=== PATIENT | female | born 1940 | race Caucasian/White ===

== ENCOUNTER 2016-08-11 18:26 | Inpatient (IN) ==
[2016-08-11] MEDS ORDERED: SODIUM CHLORIDE 0.9% 500 ML IV STA (18:52)
[2016-08-11 19:15] LABS: Basophils % 0.2 % (0.0-0.8); Eosinophils # 0.1 10*3/uL (0.0-0.87); Eosinophils % 0.6 % (0.00-10.9); Hematocrit 33.6 VOL% (35.7-47.0); Hemoglobin 11.2 GM/DL (12.0-16.0); Immature Granulocytes % 0.3 %; Immature Granulocytes Absolute 0.03 #; Lymphocytes # 2.1 10*3/uL (1.4-4.0); Lymphocytes % 22.5 % (21.3-54.2); Mean Corpuscular HGB Conc 33.3 GM/DL (32-36); Mean Corpuscular Hemoglobin 32 PG (27-34); Mean Corpuscular Volume 94.6 FL (87-102); Mean Platelet Volume 10.3 FL (9.6-12.0); Monocytes # 0.9 10*3/uL (0.11-0.8); Monocytes % 9.8 % (1.7-12.7); Neutrophils # 6.2 10*3/uL (1.4-7.4); Neutrophils % 66.6 % (38.7-73.9); Platelet Count 148 T/CUMM (130-400); Red Blood Count 3.55 MC/CUMM (3.8-5.5); Red Cell Distribution Width 12.5 % (9.3-17.3); White Blood Count 9.4 T/CUMM (4-12)
[2016-08-11 19:25] LABS: PT Patient Result 10.5 SECS; Partial Thromboplastin Time 28.2 SECS (0-40)
[2016-08-11 19:33] LABS: Albumin 3.6 G/DL (3.4-5.0); Bilirubin,Total 0.4 MG/DL (0.2-1.0); Calcium 8.6 MG/DL (8.5-10.1); Osmolality,Calculated 283.7 MOS/KG (273-304)
[2016-08-11] MEDS ORDERED: CLINDAMYCIN INJ 600 MG in PREMIX 1 EACH IV STA (19:49)
[2016-08-11] MEDS ORDERED: CLINDAMYCIN INJ 50 ML IV ONE (19:50)
--- NOTE | 2016-08-11 19:56 | CT Report ---
CT angio abdomen/femoral Indication: Left inguinal pain and swelling status post bypass. Comparison: CTA abdomen and pelvis 06/27/2016. Technique: Following administration of intravenous contrast, multiple contiguous axial images were obtained from the mid to lower chest through the feet. Additionally, 3-D Volumetric reconstructions of the aorta and bilateral lower extremity arterial structures were performed. Coronal and sagittal MPR series were initially submitted. The CT examination was performed using one or more of the following dose reduction techniques: Automatic exposure control, adjustment of the mA and kV according to patient size, use of acute or iterative reconstruction techniques. Findings: Vascular findings: Lower thoracic aorta demonstrates a moderate amount of mural thrombus as well as mild fusiform enlargement at the level of the diaphragmatic hiatus. At the hiatus, the aorta measures 3.5 cm transverse dimension. The celiac axis demonstrates moderate stenosis of the vessel origin. SMA appears patent. Previous repair of aortic aneurysm is demonstrated stent extending to the level of the renal arteries. The appearance of the stent including both aortic component and bilateral iliac components is stable. Note is made that the distal right common iliac moiety has an outpouching of contrast at the termination, image #[id number], which measures approximately a centimeter in transverse dimension. This has changed little in appearance since comparison study. 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 Diffuse intimal calcification is present throughout the internal iliac arteries. The external iliac arteries and bilateral common femoral arteries demonstrate intimal calcification but otherwise unremarkable. The bifurcation of the right common femoral artery is widely patent. The right deep femoral artery as well as right superficial femoral artery demonstrated no evidence of severe stenosis. There is short segment of intimal calcification at the level of Chau's canal resulting in [id number] stenosis of the vessel lumen. The right popliteal artery additionally demonstrates mild stenosis as result of intimal calcification at the level of the tibial plateau. Below the level of the right knee, scattered intimal calcification is noted within the tibioperoneal trunk as well as anterior tibial artery origin. 2 vessel runoff to the right ankle via the anterior tibial and peroneal arteries present. Posterior tibial artery is not well visualized below the mid calf. The bifurcation of the left common femoral artery demonstrates a widely patent deep femoral artery and patent left superficial femoral artery with mild stenosis of the vessel origin suggested. The left superficial femoral artery demonstrates some areas of intimal calcification particularly in the more caudal aspect of the vessel and at Chau's canal resulting in [id number] stenosis. The left popliteal artery demonstrates [id number] stenosis at the level of the tibial plateau. Below the level of the left knee, moderate calcification of the tibioperoneal trunk and anterior tibial artery origin is present. Two-vessel runoff to the left ankle via the peroneal and anterior tibial artery is present. The posterior tibial artery is not well-visualized shortly after its origin. Nonvascular findings: Underlying skin surface of the left inguinal region, there is a fluid collection with somewhat thick organized wall measuring 3.6 cm transverse dimension and 3.1 cm in AP dimension. This has changed little in size since comparison study with exception of organization of wall thickness and suggests chronic hematoma. Abscess is not entirely excluded. There is no flow to suggest patent pseudoaneurysm. A few of the left inguinal lymph nodes are borderline in size and may minimally increased in size since comparison study. Soft tissues and musculature of the lower extremities demonstrate no significant abnormalities. Bony structures of the lower extremities demonstrate no significant abnormalities. Calcified granuloma is present within the right lower lobe. The lower chest demonstrates no acute findings. The appearance of the abdomen and pelvis is stable compared to the previous study. Multiple diverticula are again demonstrated involving sigmoid colon. Uterus is surgically absent. Small renal cyst lateral cortex left mid kidney is stable. Impression: 1. The overall appearance of the aortobiiliac endograft is stable compared to the prior study. The termination of the right common iliac component occurs in a segment of iliac artery with fusiform enlargement and the medial wall of the stent remains displaced by approximately 9 mm from the vessel margin. 2. Probable chronic hematoma within the inguinal soft tissues on the left. There has been interval organization of wall. Infected hematoma/abscess cannot be excluded based on imaging. 3. Other findings as detailed. 08/11/2016 7:40 PM PROCEDURE INTERPRETED AT [facility] DEPARTMENT OF RADIOLOGY Final Report Signed by: Dr. Rafael Howell
[2016-08-11] MEDS ORDERED: KETOROLAC 60 MG/2 ML VIAL IM ONE (20:01)
[2016-08-11] MEDS ORDERED: ORPHENADRINE 60 MG/2 ML VIAL ONE (20:01)
[2016-08-11] MEDS ORDERED: ACETAMINOPHEN 325 MG TABLET PO PRN (20:02)
[2016-08-11] MEDS ORDERED: ONDANSETRON 4 MG/2 ML VIAL IV PRN (20:02)
--- NOTE | 2016-08-11 20:07 | Emergency Department Note ---
ISanam Gwan, am scribing for, and in the presence of, Karlso Ortiz MD 19:00. IDiana Kevin Lee, MD, personally performed the services described in this documentation, ascribed by Sandra Marion in my presence, and it is both accurate and complete . Arrival - Arrival Chief Complaint: Non-Specific Stated Complaint: POST OP COMPLICATIONS ED Nursing Triage Note: Pt c/o left groin pain and swelling started 3 days ago. Pt had stents placed in her legs 1.[address] Nelson and Betzy. Mode of Arrival: Ambulatory Limitations: No Limitations Source: Patient, Family, Old Records Reviewed, RN Notes Reviewed - History of Present Illness HPI Narrative: Patient is a 76 y/o white female who presents to the ED for further evaluation of edema and pain to left groin with an onset 3 days ago. Family confirmed that pt underwent bilateral Femoral to Iliac Artery Occlusion on 06/27/[address] Nelson with NML results. Patient then stated that 3 days ago she began to have tenderness, edema and erythema to the site on the left side. Patient denies that she has had any sxs on the right side. During exam, pt was alert and awake but showed no signs of distress. No other problems/complaints reported in ED. Onset (ago): day(s) Consistency: constant Severity: moderate Allergies/Adverse Reactions: Allergies Allergy/AdvReac Type Severity Reaction Status Date / Time tape Allergy Intermediate pulls skin Uncoded 05/14/16 06:14 off Home Medications: Home Medications Medication Instructions Recorded Confirmed Type Aspirin EC Tab 81 mg PO DAILY 08/04/15 08/11/16 History Cholecalciferol [Vitamin D3] 1,000 unit PO DAILY 08/04/15 08/11/16 History Furosemide Tab [Lasix Tab] 40 mg PO BID 08/04/15 08/11/16 History Multivit-Min/Iron/Folic/Lutein 1 each PO DAILY 08/04/15 08/11/16 History [Centrum Silver Women Tablet] Omeprazole [Prilosec] 20 mg PO DAILY 08/04/15 08/11/16 History Pravastatin [Pravachol] 20 mg PO BEDTIME 08/04/15 08/11/16 History Terazosin [Hytrin] 4 mg PO BEDTIME 08/04/15 08/11/16 History hydrALAZINE TAB [Apresoline Tab] 25 mg PO BID 08/04/15 08/11/16 History Montelukast Tab [Singulair Tab] 10 mg PO DAILY 02/08/16 08/11/16 History Metoprolol Succinate Xl [Toprol Xl] 50 mg PO BID tablet 02/26/16 08/11/16 Rx acetaZOLAMIDE TAB [Diamox Tab] 250 mg PO DAILY #90 tablet 02/26/16 08/11/16 Rx Verapamil Tab [Calan Tab] 120 mg PO DAILY 05/13/16 08/11/16 History Clopidogrel [Plavix] 75 mg PO DAILY #90 tablet 05/16/16 08/11/16 Rx HYDROcodone/ACETAMIN 7.5-325 1 tablet PO BID PRN 08/11/16 08/11/16 History [[place] 7.5-325] Review of System - Review of System 12 point system: reviewed and no additional remarkable complaints except as stated - Review of System Constitutional: Absent: chills, fever Eyes: Absent: discharge, pain Respiratory: Absent: cough Cardiovascular: Absent: chest pain, palpitations Gastrointestinal: Absent: abdominal pain, nausea, vomiting, diarrhea Genitourinary female: Absent: dysuria Musculoskeletal: Present: leg pain (left groin area around graft site is red and swollen ). Absent: arm pain, back pain Skin: Absent: rash, lesions Medical,Surgical,& Family Hx - Medical History Cardio: History of: Aneurysm (AAA-Watching For Now Dr. Pérez), CAD, Hypertension, PVD, Cardiovascular Problems (Jewel Sawyer Dr. Ware;Lt Carotid Stenosis) Neurology: No history of: Brain Aneurysm, Cerebral Hemorrhage, Cerebrovascular Accident , Cerebral Palsy, Dementia, Migraine, Multiple Sclerosis, Parkinson's Disease, Peripheral Neuropathy, Seizures, TIA, Vertigo, Neurologocal Cancer HEENT: History of: Eye Problem (Glasses/Cataracts), Dental Problems (Upper Full Lower Partial Plate) Endocrine: History of: Dyslipidemia Respiratory: History of: Asthma, Respiratory Problems (SOB; Flu Vac Current 2014 -2015 Season) Comment Only: Pneumonia (Unsure about Pneum Vac) Renal: History of: Renal Problems (Chronic Real Insufficiency Dr. Lester Last visit 07/2015) Gastrointestinal: History of: GERD, Polyps (Several) Musculoskeletal: History of: Back/Neck Problems (Dr. 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 Ware x1 stent) , Carotid Endarterectomy (Rt) Neurologic Surgeries: Patient denies: Brain Aneurysm, Cerebral Hemorrhage, Neurologic Surgery HEENT Surgeries: Surgical HX of: Carotid Endarterectomy (Rt), Eye Surgery ( Cataract Rt; 09/11/[address] Iraheta), Tonsilectomy & Adenoidectomy Abdominal Surgeries: Surgical HX of: Abdominal Surgery, Appendectomy, Colonoscopy (Dr. Garcia Last Oct 2014) Reproductive Surgeries: Surgical HX of;: Breast Surgery (Lumpectomy Lt), Gynecologic Surgery, Hysterectomy (x1 ovary removed) - Family History Family History: Reports;: Family Cancer (Mother Pancreatic; Father Lung, Brother Tongue,Colon,Lung; Son Lung Ca), Family Diabetes (x2 sisters), Family Heart Disease (Sister), Family Hypertension (Strong Family hx) Denies;: Family Anesthesia Reaction, Family Psychiatric Problems, Family Stroke - Social History Smoking Status: Former smoker Exam Vital Signs: Vital Signs Temperature 97.5 F L 08/11/16 19:12 Pulse Rate 89 08/11/16 19:12 Respiratory Rate 20 08/11/16 19:12 Blood Pressure 223/88 08/11/16 19:12 O2 Sat by Pulse Oximetry 95 08/11/16 18:28 - General General appearance: alert, in no apparent distress - Head Head exam: Present: atraumatic, normocephalic - Eye Eye exam: Present: normal appearance, PERRL, EOMI - ENT ENT exam: Present: normal oropharynx, mucous membranes moist, TM's normal bilaterally, normal external ear exam - Neck Neck exam: Present: full ROM, trachea midline. Absent: tenderness - Chest Chest inspection: Present: symmetric chest wall rise. Absent: tenderness - Respiratory Respiratory exam: Present: normal lung sounds bilaterally. Absent: respiratory distress - Cardiovascular Cardiovascular exam: Present: regular rate, normal rhythm, normal heart sounds. Absent: murmur, rubs - Abdominal Exam Abdominal exam: Present: soft, normal bowel sounds. Absent: distention, tenderness - Extremities Exam Extremities exam: Present: full ROM, other (patient has tenderness, erythema to left groin area around graft site; good distal pulses were detected ) - Back Exam Back exam: Present: full ROM. Absent: tenderness - Neurological Exam Neurological exam: Present: alert, oriented X3, CN II-XII intact. Absent: motor sensory deficit - Psychiatric Psychiatric exam: Present: normal affect, normal mood - Skin Skin exam: Present: warm, dry, intact, normal color Course Course Narrative: will admit for surgical I and D Results - Labs CBC & BMP: 08/11/16 19:08 08/11/16 19:08 Lab Results: I have reviewed the patients labs Labs: Laboratory Tests 08/11/16 08/11/16 19:08 19:15 WBC 9.4 RBC 3.55 L Hgb 11.2 L Hct 33.6 L Plt Count 148 [place] # (Auto) 0.9 H POC Creatinine 0.89 POC Estimated GFR (eGFR) > 60 Laboratory Tests 08/11/16 19:08 INR 1.0 PT Patient/Control Mix 10.5 Circ Anticoag PTT 28.2 Laboratory Tests 08/11/16 19:08 Sodium 138 Potassium 4.0 Chloride 101 Carbon Dioxide 31 BUN 31 H Creatinine 1.80 H Glucose 133 H Albumin/Globulin Ratio 1.0 L - Diagnostic Findings Procedure: CT Abdomen and Pelvis: image reviewed by me (see report) Disposition Clinical Impression: Postoperative abscess Case discussed with: patient Disposition: Still a Patient Condition: Stable
[2016-08-11] MEDS: DEXTROSE 5% NACL 0.45% 1,000 ML IV SCH (22:20)
[2016-08-12] MEDS: CLINDAMYCIN INJ 600 MG in PREMIX 1 EACH IV SCH ×3 (05:21→20:17)
[2016-08-12] MEDS: PANTOPRAZOLE 40 MG TABLET PO SCH (08:13)
--- NOTE | 2016-08-12 11:24 | General Surg History&Physical ---
Assessment and Plan (1) Hematoma following procedure Status: Acute Assessment and plan: incision and drainage this am Current Visit: Yes History of Present Illness Chief complaint: left groin pain History of present illness: Ms. Salgado is a 76 year old female Ms. 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 Repeat CT angiogram indicates no pseudo- aneurysm or arterial bleeding in this area it actually just appears to be some old hematoma I have examined and it is mildly tender slightly mildly erythematous not certain that this would respond to simple aspiration I therefore offered to take her to the operating room for small incision and drainage of the collection and then treated appropriately. I have explained how this was begun and she understands and agrees Home Medications Medication Instructions Recorded Confirmed Type Aspirin EC Tab 81 mg PO DAILY 08/04/15 08/11/16 History Cholecalciferol [Vitamin D3] 1,000 unit PO DAILY 08/04/15 08/11/16 History Furosemide Tab [Lasix Tab] 40 mg PO BID 08/04/15 08/11/16 History Multivit-Min/Iron/Folic/Lutein 1 each PO DAILY 08/04/15 08/11/16 History [Centrum Silver Women Tablet] Omeprazole [Prilosec] 20 mg PO DAILY 08/04/15 08/11/16 History Pravastatin [Pravachol] 20 mg PO BEDTIME 08/04/15 08/11/16 History Terazosin [Hytrin] 4 mg PO BEDTIME 08/04/15 08/11/16 History hydrALAZINE TAB [Apresoline Tab] 25 mg PO BID 08/04/15 08/11/16 History Montelukast Tab [Singulair Tab] 10 mg PO DAILY 02/08/16 08/11/16 History Metoprolol Succinate Xl [Toprol Xl] 50 mg PO BID tablet 02/26/16 08/11/16 Rx acetaZOLAMIDE TAB [Diamox Tab] 250 mg PO DAILY #90 tablet 02/26/16 08/11/16 Rx Verapamil Tab [Calan Tab] 120 mg PO DAILY 05/13/16 08/11/16 History Clopidogrel [Plavix] 75 mg PO DAILY #90 tablet 05/16/16 08/11/16 Rx HYDROcodone/ACETAMIN 7.5-325 1 tablet PO BID PRN 08/11/16 08/11/16 History [[place] 7.5-325] Allergies Allergy/AdvReac Type Severity Reaction Status Date / Time tape Allergy Intermediate pulls skin Uncoded 05/14/16 06:14 off Medical,Surgical,& Family Hx - Medical History Cardio: History of: Aneurysm (AAA-Watching For Now Dr. Pérez), CAD, Hypertension, PVD, Cardiovascular Problems (Speech Therapist Dr. Ware;Lt Carotid Stenosis) Neurology: No history of: Brain Aneurysm, Cerebral Hemorrhage, Cerebrovascular Accident , Cerebral Palsy, Dementia, Migraine, Multiple Sclerosis, Parkinson's Disease, Peripheral Neuropathy, Seizures, TIA, Vertigo, Neurologocal Cancer HEENT: History of: Eye Problem (Glasses/Cataracts), Dental Problems (Upper Full Lower Partial Plate) Endocrine: History of: Dyslipidemia Respiratory: History of: Asthma, Respiratory Problems (SOB; Flu Vac Current 2014 -2015 Season) Comment Only: Pneumonia (Unsure about Pneum Vac) Renal: History of: Renal Problems (Chronic Real Insufficiency Dr. Lester Last visit 07/2015) Gastrointestinal: History of: GERD, Polyps (Several) Musculoskeletal: History of: Back/Neck Problems (Dr. 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 Ware x1 stent) , Carotid Endarterectomy (Rt) Neurologic Surgeries: Patient denies: Brain Aneurysm, Cerebral Hemorrhage, Neurologic Surgery HEENT Surgeries: Surgical HX of: Carotid Endarterectomy (Rt), Eye Surgery ( Cataract Rt; 09/11/[address] Iraheta), Tonsilectomy & Adenoidectomy Abdominal Surgeries: Surgical HX of: Abdominal Surgery, Appendectomy, Colonoscopy (Dr. Garcia Last Oct 2014) Reproductive Surgeries: Surgical HX of;: Breast Surgery (Lumpectomy Lt), Gynecologic Surgery, Hysterectomy (x1 ovary removed) - Family History Family History: Reports;: Family Cancer (Mother Pancreatic; Father Lung, Brother Tongue,Colon,Lung; Son Lung Ca), Family Diabetes (x2 sisters), Family Heart Disease (Sister), Family Hypertension (Strong Family hx) Denies;: Family Anesthesia Reaction, Family Psychiatric Problems, Family Stroke - Social History Smoking Status: Former smoker Frequency of Alcohol Use: None Type of Drug Use: None Exam - Constitutional Vitals: Period Temp Pulse Resp BP Sys/Greer Pulse Ox Last 24 Hr 97.0 F-98.7 F 68-98 18-20 141-201/70-99 General appearance: normal weight, no acute distress - Head Head exam: Present: normal inspection - Eye Eye exam: Present: EOMI Pupils: Present: NIGEL - Neck Neck exam: Present: normal inspection - Respiratory Respiratory exam: Present: clear to auscultation bilaterally - Cardiovascular Cardiovascular exam: Present: RRR - GI/Abdominal GI/Abdominal exam: Present: soft - Expanded Left Lower Hip exam: Present: tenderness, erythema (She has about a 3-4 cm area of fullness with a surrounding area of erythema this is not pulsatile perfusion distally appears to be good) - Neurological Exam Neurological exam: Present: alert, oriented X3 Speech: Present: normal - Skin Skin exam: Present: normal color Quality Measures - VTE Contraindication to Mechanical VTE Prophylaxis: Ischemic Vascular Disease Results - Labs CBC & BMP: 08/11/16 19:08 08/11/16 19:08
[2016-08-12] MEDS ORDERED: TISSUE ADHESIVE 1 EACH APPLICATOR TOP ONE (11:45)
[2016-08-12] MEDS ORDERED: BUPIVACAINE 0.5% 50 ML VIAL ONE (11:45)
[2016-08-12] MEDS ORDERED: PANTOPRAZOLE 40 MG VIAL IV ONE (11:58)
[2016-08-12] MEDS ORDERED: LIDOCAINE 2% 5 ML VIAL ONE (12:15)
[2016-08-12] MEDS ORDERED: KETOROLAC 30 MG/1 ML VIAL ONE (12:15)
[2016-08-12] MEDS ORDERED: PROPOFOL 200 MG/20 ML VIAL IV ONE (12:15)
[2016-08-12] MEDS ORDERED: hydrALAZINE 20 MG/1 ML VIAL ONE (12:15)
[2016-08-12] MEDS ORDERED: ONDANSETRON 4 MG/2 ML VIAL ONE ×2 (12:15→13:06)
--- NOTE | 2016-08-12 12:46 | Operative Note ---
Date of procedure: 08/12/16 Procedure: Dr. Nelson operative report Zaid kennedy. Surgeon: Leslie Anesthesia: Rony LMA Preoperative diagnosis: Probable infected hematoma left groin Postoperative diagnosis: Same Procedure: Incision and drainage infected hematoma left groin. Indications for the procedure. Ms. Boyer is a 76-year-old woman 3 months post endovascular repair of iliac aneurysms and iliac occlusive disease. She has developed what appears to be a mildly infected hematoma in the left groin that is acutely tender with some surrounding erythema I recommended incision and drainage of explained the alternatives risks and complications which she understands and accepts Description of the procedure: After the induction of LMA anesthesia the patient' s lower abdomen groins were prepped with ChloraPrep and draped in usual fashion there is an area of erythema surrounding the left inguinal region and femoral canal with flow of a palpable mass in area and incision is made directly over the mass under the inguinal crease carried bluntly into a modest abscess that contained what appeared to be old infected hematoma this was cultured irrigated and explored with a fingertip break up any loculations it was then packed with iodoform gauze dressing applied blood loss less than 5 cc Surgeon / Physician: Melvin Nelson Results - Labs CBC & BMP: 08/11/16 19:08 08/11/16 19:08 Discharge Plan - Discharge Medications No Action Cholecalciferol [Vitamin D3] 1,000 unit PO DAILY Multivit-Min/Iron/Folic/Lutein [Centrum Silver Women Tablet] 1 each PO DAILY Pravastatin [Pravachol] 20 mg PO BEDTIME Omeprazole [Prilosec] 20 mg PO DAILY Terazosin [Hytrin] 4 mg PO BEDTIME hydrALAZINE TAB [Apresoline Tab] 25 mg PO BID Furosemide Tab [Lasix Tab] 40 mg PO BID Aspirin EC Tab 81 mg PO DAILY Montelukast Tab [Singulair Tab] 10 mg PO DAILY Metoprolol Succinate Xl [Toprol Xl] 50 mg PO BID tablet acetaZOLAMIDE TAB [Diamox Tab] 250 mg PO DAILY #90 tablet Verapamil Tab [Calan Tab] 120 mg PO DAILY Clopidogrel [Plavix] 75 mg PO DAILY #90 tablet HYDROcodone/ACETAMIN 7.5-325 [[place] 7.5-325] 1 tablet PO BID PRN PRN Reason: Pain - Follow Up or Referral - Forms/Instructions
[2016-08-12] MEDS ORDERED: ePHEDrine 50 MG/ML AMP ONE (12:57)
[2016-08-12] MEDS ORDERED: SEVOFLURANE 1 UNIT/15 MINUTE INH ONE (12:58)
[2016-08-12] MEDS ORDERED: fentaNYL 100 MCG/2 ML VIAL ONE (12:58)
[2016-08-12] MEDS ORDERED: HYDROmorphone 2 MG/1 ML VIAL ONE (13:06)
[2016-08-12] MEDS ORDERED: ONDANSETRON 4 MG/2 ML VIAL IV PRN (13:08)
[2016-08-12] MEDS: HYDROmorphone 2 MG/1 ML VIAL IV PRN ×4 (13:10→13:25)
[2016-08-12] MEDS ORDERED: LACTATED RINGERS 1,000 ML IV SCH (13:30)
[2016-08-12] MEDS: DEXTROSE 5% NACL 0.45% 1,000 ML IV SCH ×2 (18:25→20:05)
[2016-08-12] MEDS: TERAZOSIN 2 MG CAPSULE PO SCH (20:17)
[2016-08-12] MEDS: METOPROLOL SUCCINATE XL 50 MG TABLET PO SCH (20:17)
[2016-08-12] MEDS: hydrALAZINE 25 MG TABLET PO SCH (20:18)
[2016-08-12] MEDS: PRAVASTATIN 20 MG TABLET PO SCH (20:18)
[2016-08-12] MEDS: FUROSEMIDE 40 MG TABLET PO SCH (20:26)
--- NOTE | 2016-08-13 00:37 | Anesthesia Post-Op ---
Anesthesia Post OP - Post Ansesthetic Evaluation Patient seen in post op: Yes Resp: within normal limits CV: within normal limits Mental: within normal limits Temp: within normal limits [id number]: within normal limits Nausea and Vomiting: within normal limits Pain: within normal limits
[2016-08-13] MEDS: CLINDAMYCIN INJ 600 MG in PREMIX 1 EACH IV SCH ×3 (05:25→21:06)
[2016-08-13] MEDS: acetaZOLAMIDE 250 MG TABLET PO SCH (08:18)
[2016-08-13] MEDS: VERAPAMIL 120 MG TABLET PO SCH (08:18)
[2016-08-13] MEDS: ASPIRIN EC 81 MG TABLET PO SCH (08:18)
[2016-08-13] MEDS: hydrALAZINE 25 MG TABLET PO SCH ×2 (08:18→21:02)
[2016-08-13] MEDS: FUROSEMIDE 40 MG TABLET PO SCH ×2 (08:18→17:24)
[2016-08-13] MEDS: CLOPIDOGREL 75 MG TABLET PO SCH (08:18)
[2016-08-13] MEDS: PANTOPRAZOLE 40 MG TABLET PO SCH (08:18)
[2016-08-13] MEDS: CHOLECALCIFEROL 1,000 UNIT TABLET PO SCH (08:19)
[2016-08-13] MEDS: MONTELUKAST 10 MG TABLET PO SCH (08:19)
[2016-08-13] MEDS: METOPROLOL SUCCINATE XL 50 MG TABLET PO SCH ×2 (08:19→21:02)
[2016-08-13] MEDS ORDERED: OMEPRAZOLE 20 MG CAPSULE PO SCH (09:00)
--- NOTE | 2016-08-13 09:18 | Event Note ---
Ms. garcia vital signs are good with no fever no tachycardia she still has some erythema surrounding the area although it is a lesser size area of erythema. Modest serosanguineous bloody drainage but not really purulent. Initial blood cultures are negative wound cultures are pending. I am going to continue her here on IV clindamycin today pending initial cultures I then may let her go home tomorrow on p.o. antibiotics and we have some initial culture.
[2016-08-13] MEDS: DEXTROSE 5% NACL 0.45% 1,000 ML IV SCH (18:53)
[2016-08-13] MEDS: PRAVASTATIN 20 MG TABLET PO SCH (21:02)
[2016-08-13] MEDS: TERAZOSIN 2 MG CAPSULE PO SCH (21:02)
[2016-08-14] MEDS: CLINDAMYCIN INJ 600 MG in PREMIX 1 EACH IV SCH (04:26)
[2016-08-14] MEDS: hydrALAZINE 25 MG TABLET PO SCH ×2 (10:10→22:05)
[2016-08-14] MEDS: acetaZOLAMIDE 250 MG TABLET PO SCH (10:10)
[2016-08-14] MEDS: ASPIRIN EC 81 MG TABLET PO SCH (10:10)
[2016-08-14] MEDS: FUROSEMIDE 40 MG TABLET PO SCH ×2 (10:10→16:25)
[2016-08-14] MEDS: MONTELUKAST 10 MG TABLET PO SCH (10:11)
[2016-08-14] MEDS: PANTOPRAZOLE 40 MG TABLET PO SCH (10:11)
[2016-08-14] MEDS: VERAPAMIL 120 MG TABLET PO SCH (10:11)
[2016-08-14] MEDS: CLOPIDOGREL 75 MG TABLET PO SCH (10:11)
[2016-08-14] MEDS: METOPROLOL SUCCINATE XL 50 MG TABLET PO SCH ×2 (10:13→22:05)
[2016-08-14] MEDS: CHOLECALCIFEROL 1,000 UNIT TABLET PO SCH (10:13)
[2016-08-14] MEDS ORDERED: BISACODYL 5 MG TABLET PO PRN (11:04)
--- NOTE | 2016-08-14 11:07 | Event Note ---
Patient is afebrile with normal vital signs were still has a good bit of erythema around the abscess site. Asked that we remove the packing irrigated and repacked today and will continue the clindamycin for the time being and I am awaiting the cultures which are growing cramp gram-negative and gram- positive rods she is asking for laxative or stool softener which I will order but I think she needs to stay until I have better control of this infection
[2016-08-14] MEDS: DOCUSATE/SENNA 50-8.6 MG TABLET PO SCH (13:21)
[2016-08-14] MEDS ORDERED: CLINDAMYCIN 300 MG CAPSULE PO SCH (14:00)
--- NOTE | 2016-08-14 14:11 | Event Note ---
Mrs. garcia his cultures come back for strep agalactiae because this is resistant to clindamycin but sensitive to penicillin and ampicillin I will switch her to p.o. ampicillin and probably will allow her to be discharged home tomorrow
[2016-08-14] MEDS: AMPICILLIN 500 MG CAPSULE PO SCH ×2 (16:24→22:05)
[2016-08-14] MEDS: TERAZOSIN 2 MG CAPSULE PO SCH (22:05)
[2016-08-14] MEDS: PRAVASTATIN 20 MG TABLET PO SCH (22:05)
[2016-08-15] MEDS: FUROSEMIDE 40 MG TABLET PO SCH ×2 (09:00→13:57)
[2016-08-15] MEDS: AMPICILLIN 500 MG CAPSULE PO SCH ×2 (09:00→13:57)
[2016-08-15] MEDS: PANTOPRAZOLE 40 MG TABLET PO SCH (09:01)
[2016-08-15] MEDS: DOCUSATE/SENNA 50-8.6 MG TABLET PO SCH (09:01)
[2016-08-15] MEDS: acetaZOLAMIDE 250 MG TABLET PO SCH (09:01)
[2016-08-15] MEDS: MONTELUKAST 10 MG TABLET PO SCH (09:01)
[2016-08-15] MEDS: ASPIRIN EC 81 MG TABLET PO SCH (09:01)
[2016-08-15] MEDS: VERAPAMIL 120 MG TABLET PO SCH (09:01)
[2016-08-15] MEDS: CHOLECALCIFEROL 1,000 UNIT TABLET PO SCH (09:01)
[2016-08-15] MEDS: CLOPIDOGREL 75 MG TABLET PO SCH (09:01)
[2016-08-15] MEDS: hydrALAZINE 25 MG TABLET PO SCH (09:01)
[2016-08-15] MEDS: METOPROLOL SUCCINATE XL 50 MG TABLET PO SCH (09:01)
[2016-08-15 12:04] VITALS: BP 98/47
--- NOTE | 2016-08-15 13:13 | Discharge Summary ---
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 An I&D was done on this has grown a strep agalactiae that was not sensitive to the clindamycin that she was initially started with she has now been switched to ampicillin 500 mg 4 times daily and his son learning how to irrigate and pack the wound itself. She states today that she feels like she is getting gout in her left foot where she has done in the past she is not sure which medication she is used but it may be colchicine and I will reorder that I think she is safe to go home as the induration and cellulitis is markedly improved. I will make an appointment tentatively to see her in 3 weeks but she will call my office sooner if she does not show resolution as expected Diagnosis - Discharge Diagnosis (1) Hematoma following procedure Status: Acute Discharge Plan - Discharge Data Disposition: Disch To Home/Self Care Condition at Discharge: Stable Discharge Diet: advance to your usual diet Activity: resume usual activities as tolerated Hygiene: may shower Weight Bearing at Discharge: full weight bearing Driving: no restrictions Contact your physician if you experience:: fever over 101, Redness or swelling, Bleeding - Discharge Medications New acetaZOLAMIDE TAB [Diamox Tab] 250 mg PO DAILY tablet Probenecid/Colchicine 500-0.5 [Colbenemid] 1 tablet PO BID #20 tablet Ampicillin Cap 500 mg PO QID #30 capsule Continue Cholecalciferol [Vitamin D3] 1,000 unit PO DAILY Multivit-Min/Iron/Folic/Lutein [Centrum Silver Women Tablet] 1 each PO DAILY Pravastatin [Pravachol] 20 mg PO BEDTIME Omeprazole [Prilosec] 20 mg PO DAILY Terazosin [Hytrin] 4 mg PO BEDTIME hydrALAZINE TAB [Apresoline Tab] 25 mg PO BID Furosemide Tab [Lasix Tab] 40 mg PO BID Aspirin EC Tab 81 mg PO DAILY Montelukast Tab [Singulair Tab] 10 mg PO DAILY Metoprolol Succinate Xl [Toprol Xl] 50 mg PO BID tablet acetaZOLAMIDE TAB [Diamox Tab] 250 mg PO DAILY #90 tablet Verapamil Tab [Calan Tab] 120 mg PO DAILY Clopidogrel [Plavix] 75 mg PO DAILY #90 tablet HYDROcodone/ACETAMIN 7.5-325 [Sumner 7.5-325] 1 tablet PO BID PRN PRN Reason: Pain - Follow Up or Referral Follow Up: Melvin Nelson MD [Physician] - 09/02/16 - Forms/Instructions Exam - Constitutional Vitals: Period Temp Pulse Resp BP Sys/Greer Pulse Ox Last 24 Hr 96.2 F-98.6 F 63-73 14-20 98-142/46-55 92-96 Discharge Results Procedures and tests throughout hospitalization: Pending Orders 08/11/16 19:31 Blood Culture Stat Labs on day of discharge: Preliminary micro results at discharge 08/11/16 19:31 Blood Culture - Preliminary Blood No growth at 3 days 08/11/16 19:31 Blood Culture - Preliminary Blood No growth at 3 days DS: Provider Date of admission: 08/12/16 14:09 Primary care physician: Sung Hayden MD Attending physician on admission: Melvin Nelson MD Discharging clinician: Melvin Nelson MD
== END 2016-08-15 14:55 | disposition home or self-care (01) | DRG 921 ==
LOC: N.EDINP 18:26 → N.ED 18:26 → N.3E 20:38
PROVIDERS: ADMIT Surgery; ATTEND Surgery

== ENCOUNTER 2019-04-18 10:19 | Inpatient (IN) ==
[2019-04-18] MEDS ORDERED: ALBUTEROL 2.5 MG/3 ML NEB RESP TX STA (10:43)
[2019-04-18] MEDS ORDERED: methylPREDNISolone SOD SUC 125 MG/2 ML VIAL IV STA (10:44)
[2019-04-18 11:04] LABS: Basophils % 0.2 % (0.0-0.8); Hematocrit 33.3 VOL% (35.7-47.0); Hemoglobin 10.8 GM/DL (12.0-16.0); Immature Granulocytes % 1.7 %; Immature Granulocytes Absolute 0.21 #; Lymphocytes # 1.5 10*3/uL (1.4-4.0); Lymphocytes % 11.8 % (21.3-54.2); Mean Corpuscular HGB Conc 32.4 GM/DL (32-36); Mean Corpuscular Volume 99.7 FL (87-102); Mean Platelet Volume 9.6 FL (9.6-12.0); Monocytes % 8.1 % (1.7-12.7); Neutrophils % 78.2 % (38.7-73.9); Platelet Count 194 T/CUMM (130-400); Red Blood Count 3.34 MC/CUMM (3.8-5.5); Red Cell Distribution Width 12.8 % (9.3-17.3); White Blood Count 12.6 T/CUMM (4-12)
[2019-04-18 11:25] LABS: Albumin 3.2 G/DL (3.4-5.0); Bilirubin,Total 0.4 MG/DL (0.2-1.0); Calcium 9.3 MG/DL (8.5-10.1); Osmolality,Calculated 275.1 MOS/KG (273-304); Total Protein 7.4 G/DL (6.4-8.3)
[2019-04-18] MEDS ORDERED: hydrALAZINE 20 MG/1 ML VIAL ONE (11:30)
[2019-04-18] MEDS ORDERED: ACETAMINOPHEN 500 MG TABLET ONE (11:30)
[2019-04-18] MEDS ORDERED: LEVOFLOXACIN INJ 500 MG in PREMIX 1 EACH IV STA (11:33)
[2019-04-18] MEDS ORDERED: ACETAMINOPHEN 500 MG TABLET PO STA (11:44)
[2019-04-18] MEDS ORDERED: hydrALAZINE 20 MG/1 ML VIAL IV STA (11:44)
[2019-04-18] MEDS ORDERED: ALBUTEROL 2.5 MG/3 ML NEB RESP TX PRN (12:25)
[2019-04-18] MEDS ORDERED: ONDANSETRON 4 MG/2 ML VIAL IV PRN (12:40)
[2019-04-18] MEDS ORDERED: ACETAMINOPHEN 325 MG TABLET PO PRN (12:40)
[2019-04-18] MEDS ORDERED: FUROSEMIDE 40 MG/4 ML VIAL IV ONE (12:44)
[2019-04-18] MEDS ORDERED: FUROSEMIDE 20 MG/2 ML VIAL ONE (12:56)
[2019-04-18] MEDS: ALBUTEROL/IPRATROPIUM 3 ML NEB RESP TX SCH ×2 (13:02→19:38)
[2019-04-18] MEDS ORDERED: hydrALAZINE 20 MG/1 ML VIAL IV PRN (15:19)
[2019-04-18] MEDS: cefTRIAXone 1,000 MG in SYRINGE 1 EACH IV SCH (16:22)
[2019-04-18] MEDS: AZITHROMYCIN INJ 500 MG in SODIUM CHLORIDE 0.9% 250 ML IV SCH (16:22)
[2019-04-18] MEDS: methylPREDNISolone SOD SUC 40 MG/1 ML VIAL IV SCH (21:27)
[2019-04-18] MEDS: MONTELUKAST 10 MG TABLET PO SCH (21:28)
[2019-04-18] MEDS: SIMVASTATIN 10 MG TABLET PO SCH (21:28)
[2019-04-18] MEDS: ENOXAPARIN 40 MG/0.4 ML SYRINGE SUBCUT SCH (21:28)
[2019-04-18] MEDS: TERAZOSIN 2 MG CAPSULE PO SCH (21:29)
[2019-04-18] MEDS: hydrALAZINE 25 MG TABLET PO SCH (21:29)
[2019-04-18] MEDS: METOPROLOL SUCCINATE XL 100 MG TABLET PO SCH (21:29)
[2019-04-18] MEDS: MULTIVITAMIN (CENTRUM) TABLET PO SCH (21:29)
[2019-04-18] MEDS: METHOCARBAMOL 500 MG TABLET PO SCH (21:29)
[2019-04-18] MEDS: DOCUSATE SODIUM 100 MG CAPSULE PO SCH (21:29)
[2019-04-18] MEDS: BUDESONIDE/FORMOTEROL 80-4.5 INHALER 6.9 GM INH SCH (21:34)
[2019-04-19] MEDS: ALBUTEROL/IPRATROPIUM 3 ML NEB RESP TX SCH ×4 (00:11→19:52)
[2019-04-19] MEDS: methylPREDNISolone SOD SUC 40 MG/1 ML VIAL IV SCH ×3 (04:15→21:47)
[2019-04-19 05:46] LABS: Basophils % 0.2 % (0.0-0.8); Hematocrit 33.1 VOL% (35.7-47.0); Hemoglobin 10.6 GM/DL (12.0-16.0); Immature Granulocytes % 4.3 %; Immature Granulocytes Absolute 0.42 #; Lymphocytes # 1.4 10*3/uL (1.4-4.0); Lymphocytes % 14.4 % (21.3-54.2); Mean Corpuscular Volume 98.8 FL (87-102); Monocytes % 2.1 % (1.7-12.7); Platelet Count 199 T/CUMM (130-400); Red Blood Count 3.35 MC/CUMM (3.8-5.5); Red Cell Distribution Width 12.7 % (9.3-17.3); White Blood Count 9.9 T/CUMM (4-12)
[2019-04-19 06:05] LABS: Calcium 9.3 MG/DL (8.5-10.1); Osmolality,Calculated 278.8 MOS/KG (273-304)
[2019-04-19] MEDS: MULTIVITAMIN (BEROCCA) TABLET PO SCH (08:49)
[2019-04-19] MEDS: ASPIRIN EC 81 MG TABLET PO SCH (08:49)
[2019-04-19] MEDS: CHOLECALCIFEROL 1,000 UNIT TABLET PO SCH (08:49)
[2019-04-19] MEDS: FUROSEMIDE 40 MG TABLET PO SCH (08:49)
[2019-04-19] MEDS: hydrALAZINE 25 MG TABLET PO SCH ×2 (08:49→21:47)
[2019-04-19] MEDS: DOCUSATE SODIUM 100 MG CAPSULE PO SCH ×2 (08:49→21:47)
[2019-04-19] MEDS: CALCIUM (CARBONATE) 600 MG TABLET PO SCH (08:49)
[2019-04-19] MEDS: OMEGA 3 ACID ETHYL ESTERS 1 GM CAPSULE PO SCH (08:49)
[2019-04-19] MEDS: BUDESONIDE/FORMOTEROL 80-4.5 INHALER 6.9 GM INH SCH ×2 (08:54→21:55)
[2019-04-19] MEDS: guaiFENesin 200 MG/10 ML UDCUP PO PRN ×2 (09:55→17:26)
[2019-04-19] MEDS: cefTRIAXone 1,000 MG in SYRINGE 1 EACH IV SCH (12:08)
[2019-04-19] MEDS: AZITHROMYCIN INJ 500 MG in SODIUM CHLORIDE 0.9% 250 ML IV SCH (12:12)
[2019-04-19] MEDS: ENOXAPARIN 40 MG/0.4 ML SYRINGE SUBCUT SCH (21:46)
[2019-04-19] MEDS: METHOCARBAMOL 500 MG TABLET PO SCH (21:47)
[2019-04-19] MEDS: TERAZOSIN 2 MG CAPSULE PO SCH (21:47)
[2019-04-19] MEDS: MULTIVITAMIN (CENTRUM) TABLET PO SCH (21:47)
[2019-04-19] MEDS: METOPROLOL SUCCINATE XL 100 MG TABLET PO SCH (21:47)
[2019-04-19] MEDS: SIMVASTATIN 10 MG TABLET PO SCH (21:47)
[2019-04-19] MEDS: MONTELUKAST 10 MG TABLET PO SCH (21:47)
[2019-04-19] MEDS: diphenhydrAMINE CAP 25 MG CAPSULE PO PRN (23:14)
[2019-04-20] MEDS: ALBUTEROL/IPRATROPIUM 3 ML NEB RESP TX SCH ×4 (00:02→20:37)
[2019-04-20] MEDS: methylPREDNISolone SOD SUC 40 MG/1 ML VIAL IV SCH ×3 (04:38→21:51)
[2019-04-20] MEDS: FUROSEMIDE 40 MG TABLET PO SCH (09:00)
[2019-04-20] MEDS: OMEGA 3 ACID ETHYL ESTERS 1 GM CAPSULE PO SCH (09:00)
[2019-04-20] MEDS: ASPIRIN EC 81 MG TABLET PO SCH (09:00)
[2019-04-20] MEDS: hydrALAZINE 25 MG TABLET PO SCH ×2 (09:00→21:52)
[2019-04-20] MEDS: CALCIUM (CARBONATE) 600 MG TABLET PO SCH (09:01)
[2019-04-20] MEDS: MULTIVITAMIN (BEROCCA) TABLET PO SCH (09:01)
[2019-04-20] MEDS: DOCUSATE SODIUM 100 MG CAPSULE PO SCH ×2 (09:01→21:52)
[2019-04-20] MEDS: CHOLECALCIFEROL 1,000 UNIT TABLET PO SCH (09:01)
[2019-04-20] MEDS: BUDESONIDE/FORMOTEROL 80-4.5 INHALER 6.9 GM INH SCH ×2 (09:05→22:01)
[2019-04-20] MEDS: AZITHROMYCIN INJ 500 MG in SODIUM CHLORIDE 0.9% 250 ML IV SCH (12:06)
[2019-04-20] MEDS: cefTRIAXone 1,000 MG in SYRINGE 1 EACH IV SCH (12:06)
[2019-04-20] MEDS: guaiFENesin 200 MG/10 ML UDCUP PO PRN (17:59)
[2019-04-20] MEDS: TERAZOSIN 2 MG CAPSULE PO SCH (21:51)
[2019-04-20] MEDS: ENOXAPARIN 40 MG/0.4 ML SYRINGE SUBCUT SCH (21:51)
[2019-04-20] MEDS: MONTELUKAST 10 MG TABLET PO SCH (21:51)
[2019-04-20] MEDS: SIMVASTATIN 10 MG TABLET PO SCH (21:52)
[2019-04-20] MEDS: METOPROLOL SUCCINATE XL 100 MG TABLET PO SCH (21:52)
[2019-04-20] MEDS: MULTIVITAMIN (CENTRUM) TABLET PO SCH (21:52)
[2019-04-20] MEDS: METHOCARBAMOL 500 MG TABLET PO SCH (21:52)
[2019-04-20] MEDS: diphenhydrAMINE CAP 25 MG CAPSULE PO PRN (21:53)
[2019-04-21] MEDS: ALBUTEROL/IPRATROPIUM 3 ML NEB RESP TX SCH ×4 (01:43→19:55)
[2019-04-21] MEDS: methylPREDNISolone SOD SUC 40 MG/1 ML VIAL IV SCH ×2 (03:49→14:00)
[2019-04-21 05:20] LABS: Basophils % 0.3 % (0.0-0.8); Hemoglobin 10.4 GM/DL (12.0-16.0); Immature Granulocytes % 4.7 %; Immature Granulocytes Absolute 0.56 #; Lymphocytes # 1.8 10*3/uL (1.4-4.0); Lymphocytes % 15.2 % (21.3-54.2); Mean Corpuscular HGB Conc 32.5 GM/DL (32-36); Mean Corpuscular Volume 99.1 FL (87-102); Monocytes % 4.1 % (1.7-12.7); Neutrophils % 75.7 % (38.7-73.9); Platelet Count 208 T/CUMM (130-400); Red Blood Count 3.23 MC/CUMM (3.8-5.5); Red Cell Distribution Width 12.6 % (9.3-17.3); White Blood Count 11.8 T/CUMM (4-12)
[2019-04-21 05:41] LABS: Lymphocytes 29 % (20-55); Platelet Estimate Adequate; Segmented Neutrophils 67 % (50-85); Total Cells Counted 100
[2019-04-21 05:42] LABS: Calcium 8.7 MG/DL (8.5-10.1); Hypochromasia 1+; Osmolality,Calculated 289.7 MOS/KG (273-304)
[2019-04-21] MEDS: ASPIRIN EC 81 MG TABLET PO SCH (09:05)
[2019-04-21] MEDS: hydrALAZINE 25 MG TABLET PO SCH ×2 (09:05→21:34)
[2019-04-21] MEDS: OMEGA 3 ACID ETHYL ESTERS 1 GM CAPSULE PO SCH (09:06)
[2019-04-21] MEDS: CALCIUM (CARBONATE) 600 MG TABLET PO SCH (09:06)
[2019-04-21] MEDS: MULTIVITAMIN (BEROCCA) TABLET PO SCH (09:06)
[2019-04-21] MEDS: FUROSEMIDE 40 MG TABLET PO SCH (09:06)
[2019-04-21] MEDS: CHOLECALCIFEROL 1,000 UNIT TABLET PO SCH (09:07)
[2019-04-21] MEDS: DOCUSATE SODIUM 100 MG CAPSULE PO SCH ×2 (09:07→21:34)
[2019-04-21] MEDS: BUDESONIDE/FORMOTEROL 80-4.5 INHALER 6.9 GM INH SCH ×2 (09:08→21:34)
[2019-04-21] MEDS: cefTRIAXone 1,000 MG in SYRINGE 1 EACH IV SCH (14:00)
[2019-04-21] MEDS: AZITHROMYCIN INJ 500 MG in SODIUM CHLORIDE 0.9% 250 ML IV SCH (14:00)
[2019-04-21] MEDS: guaiFENesin 200 MG/10 ML UDCUP PO PRN ×2 (14:07→21:43)
[2019-04-21] MEDS: ENOXAPARIN 40 MG/0.4 ML SYRINGE SUBCUT SCH (21:32)
[2019-04-21] MEDS: MONTELUKAST 10 MG TABLET PO SCH (21:33)
[2019-04-21] MEDS: TERAZOSIN 2 MG CAPSULE PO SCH (21:33)
[2019-04-21] MEDS: MULTIVITAMIN (CENTRUM) TABLET PO SCH (21:33)
[2019-04-21] MEDS: diphenhydrAMINE CAP 25 MG CAPSULE PO PRN (21:33)
[2019-04-21] MEDS: METHOCARBAMOL 500 MG TABLET PO SCH (21:34)
[2019-04-21] MEDS: METOPROLOL SUCCINATE XL 100 MG TABLET PO SCH (21:34)
[2019-04-21] MEDS: SIMVASTATIN 10 MG TABLET PO SCH (21:34)
[2019-04-22] MEDS: ALBUTEROL/IPRATROPIUM 3 ML NEB RESP TX SCH ×4 (01:16→20:19)
[2019-04-22] MEDS: methylPREDNISolone SOD SUC 40 MG/1 ML VIAL IV SCH ×2 (02:52→13:06)
[2019-04-22] MEDS: DOCUSATE SODIUM 100 MG CAPSULE PO SCH ×2 (09:46→20:36)
[2019-04-22] MEDS: CHOLECALCIFEROL 1,000 UNIT TABLET PO SCH (09:46)
[2019-04-22] MEDS: MULTIVITAMIN (BEROCCA) TABLET PO SCH (09:46)
[2019-04-22] MEDS: CALCIUM (CARBONATE) 600 MG TABLET PO SCH (09:46)
[2019-04-22] MEDS: OMEGA 3 ACID ETHYL ESTERS 1 GM CAPSULE PO SCH (09:46)
[2019-04-22] MEDS: BUDESONIDE/FORMOTEROL 80-4.5 INHALER 6.9 GM INH SCH ×2 (09:46→20:37)
[2019-04-22] MEDS: FUROSEMIDE 40 MG TABLET PO SCH (09:46)
[2019-04-22] MEDS: ASPIRIN EC 81 MG TABLET PO SCH (09:46)
[2019-04-22] MEDS: hydrALAZINE 25 MG TABLET PO SCH ×2 (09:46→20:37)
[2019-04-22] MEDS: guaiFENesin 200 MG/10 ML UDCUP PO PRN (10:36)
[2019-04-22] MEDS: AZITHROMYCIN INJ 500 MG in SODIUM CHLORIDE 0.9% 250 ML IV SCH (13:05)
[2019-04-22] MEDS: cefTRIAXone 1,000 MG in SYRINGE 1 EACH IV SCH (13:06)
[2019-04-22] MEDS ORDERED: guaiFENesin/CODEINE 5 ML LIQUID PO PRN ×2 (15:31→15:36)
[2019-04-22] MEDS: METHOCARBAMOL 500 MG TABLET PO SCH (20:36)
[2019-04-22] MEDS: METOPROLOL SUCCINATE XL 100 MG TABLET PO SCH (20:36)
[2019-04-22] MEDS: MULTIVITAMIN (CENTRUM) TABLET PO SCH (20:36)
[2019-04-22] MEDS: MONTELUKAST 10 MG TABLET PO SCH (20:36)
[2019-04-22] MEDS: diphenhydrAMINE CAP 25 MG CAPSULE PO PRN (20:36)
[2019-04-22] MEDS: ENOXAPARIN 40 MG/0.4 ML SYRINGE SUBCUT SCH (20:37)
[2019-04-22] MEDS: SIMVASTATIN 10 MG TABLET PO SCH (20:37)
[2019-04-22] MEDS: TERAZOSIN 2 MG CAPSULE PO SCH (20:41)
[2019-04-23] MEDS: ALBUTEROL/IPRATROPIUM 3 ML NEB RESP TX SCH ×2 (00:10→07:47)
[2019-04-23] MEDS: methylPREDNISolone SOD SUC 40 MG/1 ML VIAL IV SCH (02:54)
[2019-04-23] MEDS: CALCIUM (CARBONATE) 600 MG TABLET PO SCH (08:54)
[2019-04-23] MEDS: MULTIVITAMIN (BEROCCA) TABLET PO SCH (08:55)
[2019-04-23] MEDS: hydrALAZINE 25 MG TABLET PO SCH (08:55)
[2019-04-23] MEDS: OMEGA 3 ACID ETHYL ESTERS 1 GM CAPSULE PO SCH (08:55)
[2019-04-23] MEDS: ASPIRIN EC 81 MG TABLET PO SCH (08:55)
[2019-04-23] MEDS: DOCUSATE SODIUM 100 MG CAPSULE PO SCH (08:55)
[2019-04-23] MEDS: CHOLECALCIFEROL 1,000 UNIT TABLET PO SCH (08:55)
[2019-04-23] MEDS: FUROSEMIDE 40 MG TABLET PO SCH (08:55)
[2019-04-23] MEDS: BUDESONIDE/FORMOTEROL 80-4.5 INHALER 6.9 GM INH SCH (09:01)
[2019-04-23] MEDS ORDERED: PNEUMOCOCCAL VACCINE (13 VALENT) 0.5 ML SYRINGE IM ONE (10:41)
[2019-04-23 11:31] VITALS: BP 137/59
[2019-04-23] MEDS: cefTRIAXone 1,000 MG in SYRINGE 1 EACH IV SCH (12:09)
[2019-04-23] MEDS: AZITHROMYCIN INJ 500 MG in SODIUM CHLORIDE 0.9% 250 ML IV SCH (12:10)
== END 2019-04-23 14:12 | disposition home health service (06) | DRG 190 ==
LOC: N.ED 10:19 → SUATTDRO 12:40 → SUPCPDRO 12:40 → N.EDINP 12:40 → N.5E 14:13 → N.TELEN 14:49
PROVIDERS: ADMIT Internal Medicine; ATTEND Internal Medicine

== ENCOUNTER 2021-08-01 06:12 | Observation (INO) ==
[2021-08-01 06:38] LABS: Basophils % 0.2 % (0.0-0.8); Eosinophils # 0.3 10*3/uL (0.0-0.87); Eosinophils % 3.2 % (0.00-10.9); Hematocrit 35.7 VOL% (35.7-47.0); Hemoglobin 11.6 GM/DL (12.0-16.0); Immature Granulocytes % 0.2 %; Immature Granulocytes Absolute 0.02 #; Lymphocytes # 4.3 10*3/uL (1.4-4.0); Lymphocytes % 47.4 % (21.3-54.2); Mean Corpuscular HGB Conc 32.5 GM/DL (32-36); Mean Corpuscular Volume 98.3 FL (87-102); Mean Platelet Volume 9.7 FL (9.6-12.0); Monocytes # 0.7 10*3/uL (0.11-0.8); Monocytes % 7.2 % (1.7-12.7); Neutrophils % 41.8 % (38.7-73.9); Platelet Count 163 T/CUMM (130-400); Red Blood Count 3.63 MC/CUMM (3.8-5.5); Red Cell Distribution Width 13.1 % (9.3-17.3)
[2021-08-01 06:48] LABS: PT Patient Result 10.9 SECS (10.5-12.0)
[2021-08-01] MEDS ORDERED: DIAZEPAM 5 MG TABLET PO ONE (08:00)
[2021-08-01] MEDS ORDERED: hydrALAZINE 20 MG/1 ML VIAL ONE (10:44)
[2021-08-01] MEDS ORDERED: hydrALAZINE 20 MG/1 ML VIAL IV ONE (10:48)
[2021-08-01] MEDS ORDERED: ACETAMINOPHEN 325 MG TABLET PO PRN (11:31)
[2021-08-01] MEDS ORDERED: ONDANSETRON 4 MG/2 ML VIAL IV PRN (11:31)
[2021-08-01] MEDS ORDERED: hydrALAZINE 20 MG/1 ML VIAL IV PRN (11:31)
[2021-08-01] MEDS: ALBUTEROL/IPRATROPIUM 3 ML NEB RESP TX SCH ×2 (12:19→19:35)
[2021-08-01] MEDS ORDERED: ALBUTEROL 2.5 MG/3 ML NEB RESP TX PRN (12:33)
[2021-08-01] MEDS ORDERED: amLODIPine 5 MG TABLET PO PRN (12:33)
[2021-08-01] MEDS ORDERED: ALBUTEROL/IPRATROPIUM 3 ML NEB RESP TX PRN (12:33)
[2021-08-01] MEDS ORDERED: cloNIDine 0.1 MG TABLET PO PRN (13:00)
[2021-08-01] MEDS: SODIUM CHLORIDE 0.45% 1,000 ML IV SCH (15:04)
[2021-08-01] MEDS: ENOXAPARIN 40 MG/0.4 ML SYRINGE SUBCUT SCH (15:04)
[2021-08-01] MEDS ORDERED: MORPHINE 2 MG/1 ML SYRINGE IV PRN (15:31)
[2021-08-01] MEDS: METOPROLOL SUCCINATE XL 50 MG TABLET PO SCH (20:36)
[2021-08-01] MEDS ORDERED: MELATONIN 3 MG TABLET PO SCH (21:00)
[2021-08-01] MEDS ORDERED: AZELASTINE NASAL 137 MCG/SPRAY 30 ML BOTTLE BOTH NARES SCH (21:00)
[2021-08-01] MEDS ORDERED: TERAZOSIN 1 MG CAPSULE PO SCH (21:00)
[2021-08-01] MEDS ORDERED: METHOCARBAMOL 500 MG TABLET PO SCH (21:00)
[2021-08-02] MEDS: ALBUTEROL/IPRATROPIUM 3 ML NEB RESP TX SCH ×3 (00:30→13:10)
[2021-08-02] MEDS ORDERED: PANTOPRAZOLE 40 MG TABLET PO SCH (06:30)
[2021-08-02] MEDS ORDERED: FUROSEMIDE 40 MG TABLET PO SCH (09:00)
[2021-08-02] MEDS ORDERED: MULTIVITAMIN (CENTRUM) TABLET PO SCH (09:00)
[2021-08-02] MEDS ORDERED: ASPIRIN EC 81 MG TABLET PO SCH (09:00)
[2021-08-02] MEDS: METOPROLOL SUCCINATE XL 50 MG TABLET PO SCH (11:08)
[2021-08-02] MEDS: SODIUM CHLORIDE 0.45% 1,000 ML IV SCH (11:09)
[2021-08-02 11:33] VITALS: BP 128/63
[2021-08-02] MEDS: ENOXAPARIN 40 MG/0.4 ML SYRINGE SUBCUT SCH (15:08)
[2021-08-02] MEDS ORDERED: SIMVASTATIN 40 MG TABLET PO SCH (21:00)
[2021-08-02] MEDS ORDERED: MONTELUKAST 10 MG TABLET PO SCH (21:00)
== END 2021-08-02 14:15 | disposition home or self-care (01) ==
LOC: N.RAD 06:12 → N.SDSINP 06:12 → N.3E 06:12 → N.SDSINP 06:14 → N.3E 13:01
PROVIDERS: ADMIT Radiology Diagnostic Radiology; ATTEND Radiology Diagnostic Radiology
PROC: IRGDHTC (2021-08-01 11:20)